=== PATIENT | male | born 1960 | race Two or more races ===

== ENCOUNTER 2017-03-11 07:34 | Inpatient (IN) | payer OTHER ==
[~2017-03-11] VITALS: Ht 160 cm; Wt 82.3 kg
[~2017-03-11 07:34] MED LIST: ATOR20TA PO; CEPH-37 PO; DOCU-94 PO; FER325T PO; FURO40TA PO; LACO200T PO; LEVE100012 PO; LIS5T PO; PANT1INJ3 PO; PERCOT PO; POTA10TA75 PO
[2017-03-11 08:14] LABS: Basophils # (auto) 0 uL; Basophils % (auto) 0.2 % (0.0-2.0); DEFINITIVE VIEW TRANSMISSION; Eosinophils # (auto) 0.1 uL; Hematocrit 43.7 % (41.0-53.0); Hemoglobin 14.2 g/dL (13.5-17.5); Lymphocytes # (auto) 1.1 uL; Lymphocytes % (auto) 13.2 % (10.0-50.0); Mean Corpuscular Hemoglobin 24.9 pg (28.0-32.0); Mean Corpuscular Hgb Conc. 32.4 g/dL (32.0-36.0); Mean Corpuscular Volume 76.9 fL (80.0-100.0); Mean Platelet Volume 9.8 fL (7.4-10.4); Monocytes # (auto) 0.7 uL; Monocytes % (auto) 8.2 % (0.0-12.0); Neutrophils # (auto) 6.6 uL; Neutrophils % (auto) 77.4 % (37.0-80.0); Platelet Count (auto) 173 10^3/uL (140-450); Red Cell Distribution Width 16.4 % (11.6-16.0); White Blood Cell 8.5 10^3/uL (4.4-10.8)
[2017-03-11] MEDS ORDERED: SODIUM CHLORIDE 0.9% 500 ML IVB ONE (08:20)
[2017-03-11] MEDS ORDERED: HYDROmorphone HCL 2 MG/ML VL IV ONE (08:30)
[2017-03-11] MEDS ORDERED: ONDANSETRON HCL 4 MG/2 ML VIAL IV ONE (08:30)
[2017-03-11 08:40] LABS: Albumin 3.9 g/dL (3.4-5.0); BUN/Creatinine Ratio 14.6; Calcium 8.4 mg/dL (8.5-10.1); Potassium 4.1 mmol/L (3.5-5.1)
[2017-03-11 08:43] LABS: Bilirubin, Total 0.6 mg/dL (0.2-1.0); Total Protein 6.8 g/dL (6.4-8.2)
[2017-03-11 08:44] LABS: Amylase 36 U/L (25-115)
[2017-03-11] MEDS ORDERED: metroNIDAZOLE 500MG/100ML 100 ML IV ONE (09:30)
[2017-03-11] MEDS ORDERED: TEMAZEPAM 15 MG CAP PO PRN (09:30)
[2017-03-11] MEDS ORDERED: LORazepam 0.5 MG TAB PO PRN (09:30)
[2017-03-11] MEDS ORDERED: DEXTROSE (50%) 50ML SYRG IV PRN (09:30)
[2017-03-11] MEDS ORDERED: LEVOFLOXACIN 500MG 100 ML IV ONE (09:30)
[2017-03-11] MEDS ORDERED: ACETAMINOPHEN 500 MG TAB PO PRN (09:30)
[2017-03-11] MEDS ORDERED: MORPHINE SULF INJ 2 MG/ML SYRINGE 1ML IV PRN ×2 (09:30)
[2017-03-11] MEDS ORDERED: NITROGLYCERIN 0.4 MG SL TAB SL PRN (09:30)
[2017-03-11 09:32] LABS: Urine RBC None Seen /hpf (0 - 3)
[2017-03-11 09:47] LABS: Urine Bilirubin Negative (Negative); Urine Blood Negative /uL (Negative); Urine Color Yellow (Yellow); Urine Glucose Normal (Normal); Urine Ketone Negative (Negative); Urine Nitrite Negative (Negative); Urine Urobilinogen Normal (Negative)
[2017-03-11] MEDS ORDERED: ENOXAPARIN SOD 40 MG/0.4 ML SYRINGE SC SCH (10:00)
[2017-03-11] MEDS ORDERED: PATIENTS OWN MEDICATION (Lacosamide (Vimpat) 200 MG) PO SCH (10:00)
[2017-03-11] MEDS ORDERED: LEVETIRACETAM 1500 MG PO SCH (10:00)
[2017-03-11 10:26] LABS: Partial Thromboplastin Time 47.9 sec (22.64-33.71)
[2017-03-11 10:40] LABS: Prothrombin Time 44.2 sec (9.37-12.3)
[2017-03-11 10:42] LABS: INR 4.09 (0.9-1.15)
[2017-03-11] MEDS: SODIUM CHLORIDE 0.9% 1,000 ML IV SCH (10:50)
[2017-03-11] MEDS: PANTOPRAZOLE 40 MG TAB PO SCH (10:51)
[2017-03-11] MEDS: LACOSAMIDE 50 MG TAB PO SCH (10:51)
[2017-03-11] MEDS: METOPROLOL TARTRATE 25 MG TAB PO SCH ×2 (10:51→22:42)
[2017-03-11] MEDS: LISINOPRIL 5 MG TAB PO SCH (10:51)
[2017-03-11] MEDS: LEVOFLOXACIN 500MG 100 ML IV SCH (10:52)
[2017-03-11] MEDS: LEVETIRACETAM 500 MG TAB PO SCH ×2 (10:52→22:41)
[2017-03-11] MEDS: FERROUS SULFATE 325 MG TAB PO SCH ×2 (10:52→22:41)
[2017-03-11] MEDS: AMIODARONE HCL 200 MG TAB PO SCH (10:52)
[2017-03-11 17:00] VITALS: BP 133/77
[2017-03-11] MEDS: metroNIDAZOLE 500MG/100ML 100 ML IV SCH ×2 (17:54→18:00)
[2017-03-11] MEDS: ACCU-CHEK COMFORT CURVE STRIP VI SCH (19:00)
[2017-03-11 22:00] VITALS: BP 131/68
[2017-03-11] MEDS: ATORVASTATIN 20 MG TAB PO SCH (22:41)
[2017-03-12] MEDS: metroNIDAZOLE 500MG/100ML 100 ML IV SCH ×5 (00:11→23:50)
[2017-03-12] MEDS: OXYCODONE W/ ACETAMINOPHEN 5/325MG TABLET PO PRN ×3 (00:12→15:20)
[2017-03-12] MEDS: LACOSAMIDE 50 MG TAB PO SCH ×3 (00:25→22:15)
[2017-03-12 05:33] LABS: Basophils # (auto) 0 uL; Basophils % (auto) 0.3 % (0.0-2.0); DEFINITIVE VIEW TRANSMISSION; Eosinophils # (auto) 0.1 uL; Eosinophils % (auto) 1.1 % (0.0-7.0); Hematocrit 42.2 % (41.0-53.0); Hemoglobin 13.3 g/dL (13.5-17.5); Lymphocytes # (auto) 1.5 uL; Lymphocytes % (auto) 20.6 % (10.0-50.0); Mean Corpuscular Hemoglobin 24.8 pg (28.0-32.0); Mean Corpuscular Hgb Conc. 31.6 g/dL (32.0-36.0); Mean Corpuscular Volume 78.5 fL (80.0-100.0); Mean Platelet Volume 10.1 fL (7.4-10.4); Monocytes # (auto) 0.7 uL; Monocytes % (auto) 9.4 % (0.0-12.0); Neutrophils # (auto) 4.9 uL; Neutrophils % (auto) 68.6 % (37.0-80.0); Platelet Count (auto) 154 10^3/uL (140-450); Red Cell Distribution Width 16.4 % (11.6-16.0); White Blood Cell 7.2 10^3/uL (4.4-10.8)
[2017-03-12 05:42] LABS: Partial Thromboplastin Time 56.9 sec (22.64-33.71)
[2017-03-12 05:43] LABS: INR 3.75 (0.9-1.15); Prothrombin Time 40.5 sec (9.37-12.3)
[2017-03-12 05:53] LABS: Albumin 3.2 g/dL (3.4-5.0); BUN/Creatinine Ratio 12.3; Bilirubin, Total 0.7 mg/dL (0.2-1.0); Calcium 8.2 mg/dL (8.5-10.1); Potassium 4.2 mmol/L (3.5-5.1); Total Protein 6.3 g/dL (6.4-8.2)
[2017-03-12 06:00] VITALS: BP 124/73
[2017-03-12] MEDS: InsuLIN REG 1unit/0.01ml Soln (100units/ml) SC SCH ×3 (06:00→11:30)
[2017-03-12] MEDS: ACCU-CHEK COMFORT CURVE STRIP VI SCH ×3 (06:19→11:30)
[2017-03-12] MEDS: SODIUM CHLORIDE 0.9% 1,000 ML IV SCH ×3 (06:20→15:27)
[2017-03-12 07:04] VITALS: BP 124/78
[2017-03-12] MEDS ORDERED: ONDANSETRON HCL 4 MG/2 ML VIAL ONE (10:07)
[2017-03-12] MEDS: LISINOPRIL 5 MG TAB PO SCH (10:19)
[2017-03-12] MEDS: FERROUS SULFATE 325 MG TAB PO SCH ×2 (10:19→22:15)
[2017-03-12] MEDS: PANTOPRAZOLE 40 MG TAB PO SCH (10:19)
[2017-03-12] MEDS: METOPROLOL TARTRATE 25 MG TAB PO SCH ×2 (10:20→22:17)
[2017-03-12] MEDS: LEVETIRACETAM 500 MG TAB PO SCH ×2 (10:22→22:15)
[2017-03-12] MEDS: AMIODARONE HCL 200 MG TAB PO SCH (10:47)
[2017-03-12] MEDS: LEVOFLOXACIN 500MG 100 ML IV SCH (10:51)
[2017-03-12 11:28] VITALS: BP 132/67
[2017-03-12 16:35] VITALS: BP 138/79
[2017-03-12 22:00] VITALS: BP 141/72
[2017-03-12] MEDS: ATORVASTATIN 20 MG TAB PO SCH (22:15)
[2017-03-13 05:30] VITALS: BP 123/70
[2017-03-13] MEDS: metroNIDAZOLE 500MG/100ML 100 ML IV SCH ×3 (06:41→18:00)
[2017-03-13] MEDS: SODIUM CHLORIDE 0.9% 1,000 ML IV SCH ×3 (06:42→22:30)
[2017-03-13 06:43] LABS: Partial Thromboplastin Time 44.1 sec (22.64-33.71)
[2017-03-13 06:45] LABS: INR 2.33 (0.9-1.15); Prothrombin Time 25.2 sec (9.37-12.3)
[2017-03-13 07:02] LABS: Cholesterol 126 mg/dL (< 200); HDL Cholesterol 63 mg/dL (40-59); LDL Cholesterol 65 mg/dL (< 100); Triglycerides 50 mg/dL (< 150)
[2017-03-13 09:00] VITALS: BP 128/76
[2017-03-13] MEDS: LEVETIRACETAM 500 MG TAB PO SCH ×2 (10:00→22:26)
[2017-03-13] MEDS: AMIODARONE HCL 200 MG TAB PO SCH (10:00)
[2017-03-13] MEDS: PANTOPRAZOLE 40 MG TAB PO SCH (10:00)
[2017-03-13] MEDS: FERROUS SULFATE 325 MG TAB PO SCH ×2 (10:00→22:26)
[2017-03-13] MEDS: LACOSAMIDE 50 MG TAB PO SCH ×2 (10:00→22:29)
[2017-03-13] MEDS: METOPROLOL TARTRATE 25 MG TAB PO SCH ×2 (10:00→22:27)
[2017-03-13] MEDS: LISINOPRIL 5 MG TAB PO SCH (10:00)
[2017-03-13] MEDS: PROCHLORPERAZINE EDISYLATE 5 MG/ML 2ML VIAL IV PRN ×2 (10:39→10:43)
[2017-03-13] MEDS: LEVOFLOXACIN 500MG 100 ML IV SCH (11:00)
[2017-03-13] MEDS ORDERED: GASTROGRAFIN 30 ML SOL ONE (12:27)
[2017-03-13 13:00] VITALS: BP 131/68
[2017-03-13] MEDS ORDERED: IOHEXOL 300 MG/ML 100ML BOTTLE IJ ONE (15:27)
[2017-03-13] MEDS ORDERED: WARFARIN SODIUM 2.5 MG TAB PO ONE (17:00)
[2017-03-13 17:27] VITALS: BP 136/77
[2017-03-13 22:00] VITALS: BP 151/77
[2017-03-13] MEDS: ATORVASTATIN 20 MG TAB PO SCH (22:27)
[2017-03-14] VITALS (7 sets, daily range): BP systolic 134–170; BP diastolic 71–80
[2017-03-14] MEDS: metroNIDAZOLE 500MG/100ML 100 ML IV SCH ×4 (00:36→17:11)
[2017-03-14 06:29] LABS: Basophils # (auto) 0 uL; Basophils % (auto) 0.3 % (0.0-2.0); DEFINITIVE VIEW TRANSMISSION; Eosinophils # (auto) 0.1 uL; Hematocrit 41.6 % (41.0-53.0); Hemoglobin 13.3 g/dL (13.5-17.5); Lymphocytes % (auto) 20.8 % (10.0-50.0); Mean Corpuscular Hemoglobin 24.9 pg (28.0-32.0); Mean Corpuscular Hgb Conc. 31.9 g/dL (32.0-36.0); Mean Corpuscular Volume 78.1 fL (80.0-100.0); Mean Platelet Volume 9.1 fL (7.4-10.4); Monocytes # (auto) 0.5 uL; Monocytes % (auto) 9.6 % (0.0-12.0); Neutrophils # (auto) 3.4 uL; Neutrophils % (auto) 68.3 % (37.0-80.0); Platelet Count (auto) 188 10^3/uL (140-450)
[2017-03-14 06:48] LABS: INR 1.61 (0.9-1.15); Prothrombin Time 17.4 sec (9.37-12.3)
[2017-03-14 06:49] LABS: BUN/Creatinine Ratio 15.8; Calcium 8.1 mg/dL (8.5-10.1); Magnesium 2.2 mg/dL (1.6-2.6); Potassium 3.6 mmol/L (3.5-5.1)
[2017-03-14] MEDS: LEVETIRACETAM 500 MG TAB PO SCH ×2 (10:21→22:11)
[2017-03-14] MEDS: LEVOFLOXACIN 500MG 100 ML IV SCH (10:21)
[2017-03-14] MEDS: LACOSAMIDE 50 MG TAB PO SCH ×2 (10:21→22:11)
[2017-03-14] MEDS: PANTOPRAZOLE 40 MG TAB PO SCH (10:23)
[2017-03-14] MEDS: LISINOPRIL 5 MG TAB PO SCH (10:23)
[2017-03-14] MEDS: METOPROLOL TARTRATE 25 MG TAB PO SCH (10:24)
[2017-03-14] MEDS: AMIODARONE HCL 200 MG TAB PO SCH (10:24)
[2017-03-14] MEDS: FERROUS SULFATE 325 MG TAB PO SCH ×2 (10:25→22:11)
[2017-03-14] MEDS: SODIUM CHLORIDE 0.9% 1,000 ML IV SCH ×2 (10:26→16:50)
[2017-03-14] MEDS ORDERED: LISINOPRIL 5 MG TAB PO ONE (14:45)
[2017-03-14] MEDS ORDERED: WARFARIN SODIUM 5 MG TAB PO ONE (17:00)
[2017-03-14] MEDS: ATORVASTATIN 20 MG TAB PO SCH (22:11)
[2017-03-15] VITALS (7 sets, daily range): BP systolic 123–157; BP diastolic 75–99
[2017-03-15] MEDS: metroNIDAZOLE 500MG/100ML 100 ML IV SCH ×4 (01:30→18:03)
[2017-03-15] MEDS: SODIUM CHLORIDE 0.9% 1,000 ML IV SCH ×2 (03:40→14:55)
[2017-03-15 06:31] LABS: Partial Thromboplastin Time 32.2 sec (22.64-33.71)
[2017-03-15 06:32] LABS: INR 1.63 (0.9-1.15); Prothrombin Time 17.6 sec (9.37-12.3)
[2017-03-15] MEDS: LEVOFLOXACIN 500MG 100 ML IV SCH (10:54)
[2017-03-15] MEDS: PANTOPRAZOLE 40 MG TAB PO SCH (10:54)
[2017-03-15] MEDS: LEVETIRACETAM 500 MG TAB PO SCH ×2 (10:55→22:10)
[2017-03-15] MEDS: LACOSAMIDE 50 MG TAB PO SCH ×2 (10:55→22:11)
[2017-03-15] MEDS: FERROUS SULFATE 325 MG TAB PO SCH ×2 (10:55→22:10)
[2017-03-15] MEDS: AMIODARONE HCL 200 MG TAB PO SCH (10:56)
[2017-03-15] MEDS: LISINOPRIL 10 MG TAB PO SCH (10:56)
[2017-03-15] MEDS ORDERED: WARFARIN SODIUM 2.5 MG TAB PO ONE (17:00)
[2017-03-15] MEDS: ATORVASTATIN 20 MG TAB PO SCH (22:11)
[2017-03-16] MEDS: SODIUM CHLORIDE 0.9% 1,000 ML IV SCH (00:50)
[2017-03-16 05:00] VITALS: BP 152/81
[2017-03-16] MEDS: metroNIDAZOLE 500MG/100ML 100 ML IV SCH ×3 (05:27→11:36)
[2017-03-16 06:10] LABS: Basophils # (auto) 0 uL; Basophils % (auto) 0.6 % (0.0-2.0); DEFINITIVE VIEW TRANSMISSION; Eosinophils # (auto) 0.1 uL; Hematocrit 41.1 % (41.0-53.0); Hemoglobin 13.6 g/dL (13.5-17.5); Lymphocytes # (auto) 1.4 uL; Lymphocytes % (auto) 27.9 % (10.0-50.0); Mean Corpuscular Hemoglobin 25.4 pg (28.0-32.0); Mean Corpuscular Hgb Conc. 32.9 g/dL (32.0-36.0); Mean Platelet Volume 9.1 fL (7.4-10.4); Monocytes # (auto) 0.5 uL; Monocytes % (auto) 10.4 % (0.0-12.0); Neutrophils % (auto) 59.1 % (37.0-80.0); Platelet Count (auto) 186 10^3/uL (140-450); Red Cell Distribution Width 15.9 % (11.6-16.0); White Blood Cell 5.1 10^3/uL (4.4-10.8)
[2017-03-16 06:23] LABS: Potassium 3.2 mmol/L (3.5-5.1)
[2017-03-16 06:34] LABS: Partial Thromboplastin Time 31.9 sec (22.64-33.71)
[2017-03-16 06:36] LABS: INR 1.99 (0.9-1.15); Prothrombin Time 21.5 sec (9.37-12.3)
[2017-03-16 06:37] LABS: BUN/Creatinine Ratio 8.1; Calcium 7.9 mg/dL (8.5-10.1)
[2017-03-16 08:00] VITALS: BP 159/83
[2017-03-16 09:00] VITALS: BP 159/83
[2017-03-16] MEDS: LACOSAMIDE 50 MG TAB PO SCH (10:18)
[2017-03-16] MEDS: LEVOFLOXACIN 500MG 100 ML IV SCH (10:18)
[2017-03-16] MEDS: PANTOPRAZOLE 40 MG TAB PO SCH (10:18)
[2017-03-16] MEDS: FERROUS SULFATE 325 MG TAB PO SCH (10:19)
[2017-03-16] MEDS: AMIODARONE HCL 200 MG TAB PO SCH (10:19)
[2017-03-16] MEDS: LEVETIRACETAM 500 MG TAB PO SCH (10:20)
[2017-03-16] MEDS: LISINOPRIL 10 MG TAB PO SCH (10:20)
[2017-03-16] MEDS ORDERED: METR500T PO (11:58)
[2017-03-16] MEDS ORDERED: LEVO500T3 PO (11:58)
[2017-03-16] MEDS ORDERED: POTASSIUM CHL 20 Meq TABLET PO ONE (12:00)
[2017-03-16 12:55] VITALS: BP 159/83
[2017-03-16 13:00] VITALS: BP 141/80
[2017-03-16 15:14] VITALS: BP 141/80
[2017-03-16] MEDS ORDERED: WARFARIN SODIUM 5 MG TAB PO ONE (17:00)
== END 2017-03-16 15:14 | disposition home or self-care (01) | DRG 392 ==
LOC: ER 07:35 → TELE 07:36 → TELE-WESTW 11:34
PROVIDERS: ADMIT Internal Medicine; ATTEND Internal Medicine
DX: K57.20 Diverticulitis of large intestine with perforation and abscess without bleeding (principal); E11.9 Type 2 diabetes mellitus without complications; K21.9 Gastro-esophageal reflux disease without esophagitis; E66.9 Obesity, unspecified; G40.909 Epilepsy, unspecified, not intractable, without status epilepticus; E78.5 Hyperlipidemia, unspecified; I10 Essential (primary) hypertension; Z79.01 Long term (current) use of anticoagulants; Z80.0 Family history of malignant neoplasm of digestive organs; Z82.49 Family history of ischemic heart disease and other diseases of the circulatory system; Z83.3 Family history of diabetes mellitus; Z95.2 Presence of prosthetic heart valve; Z68.32 Body mass index [BMI] 32.0-32.9, adult; Z79.899 Other long term (current) drug therapy
CPT/HCPCS: 36415; 71010; 74176; 74177; 80048; 80053; 80061; 81001; 82150; 82962; 83036; 83690; 83735; 85025; 85610; 85730; 87086; 94761; 96365; 96375; J1956; J2405; J3490